=== PATIENT | male | born 1945 | race Caucasian/White ===

== ENCOUNTER 2017-12-26 16:38 | Inpatient (IN) | payer OTHER ==
[~2017-12-26] VITALS: Ht 195.6 cm; Wt 71.0 kg
[~2017-12-26 16:38] MED LIST: ACETAMINOPHEN325 M1 PO; ADVAIR 250-501 EACH PO; ALLOPURINOL100 MG PO; AMOXICILLIN500 MG PO; ASPIRIN81 MG PO; ATROPINE S0.1 MG/1 M PO; BACTRIM DS TAB1 EACH PO; BISACODYL5 MG PO; CENTRUM ULTRA1 EAC1 PO; CLOPIDOGREL75 MG PO; COMBIVENT INH14.7 GM INH; DIGOXIN125 MCG PO; DILTIAZEM 24HR180 MG PO; DITROPAN XL10 MG PO; DULCOLAX PO; ECOTRIN81 MG PO; FUROSEMIDE40 MG PO; GABAPENTIN300 MG PO; GEMFIBROZIL600 MG PO; GLIMEPIRIDE1 MG PO; GLIMEPIRIDE2 MG PO; HYDROCHLOROTH12.5 MG PO; IMODIUM A-1 MG/7.5 M PO; IMODIUM PO; IMODIUM2 MG PO; KLOR-CON20 MEQ PO; LEVAQUIN250 MG PO; LEVOTHYROXINE50 MCG PO; LIDOCAINE CREAM TOP; LISINOPRIL2.5 MG PO; LORAZEPAM0.5 MG PO; LYRICA200 MG PO; METFORMIN HCL850 MG PO; METOPROLOL SUCC25 MG PO; METOPROLOL SUCC50 MG PO; MORPHINE PO; MUPIROCIN22 GM TOP; NORCO 5-325 TA1 EACH PO; PACERONE200 MG PO; PRAVASTATIN SOD40 MG PO; PROAIR HFA INH8.5 GM INH; PROBIOTIC COMP1 EACH PO; PROCTOSOL-HC28.35 GM PR; QUESTRAN PACKET4 GM PO; REQUIP1 MG PO; ROPINIROLE HC0.25 MG PO; ROPINIROLE HCL1 MG PO; SAW PALMETTO450 MG PO; SILVER SULFADI400 GM; SILVER SULFADI400 GM TOP; SODIUM BICARBO650 MG PO; SYMBICORT 16010.2 GM INH; TAMSULOSIN HCL0.4 MG PO; TORSEMIDE10 MG PO; ULTRAM50 MG PO; VITAMIN D1000 UNI1 PO; VITAMIN D250000 UNIT PO; ZOFRAN ODT4 MG PO; [UNRECOGNIZED DRUG - OTHER]
--- OUTSIDE RECORDS SUMMARY | 2017-12-26 16:40 | XMS REPORT | Clinical Summary ---
Author Author [facility] Organization [facility] Address Unknown Phone Unavailable Care Team Providers Care Composition Professor Name Role Phone Asked, Pcp PCP Unavailable Allergies Active Allergy Reactions Severity Noted Date Comments Irbesartan GI Intolerance 09/10/2016 Iodine Low 05/31/2016 Patient have severe Nausea when he get Iodine Niacin Other (See Comments) 07/25/2016 Can not eat Current Medications Prescription Sig. Disp. Refills Start End Date Status Date gabapentin (NEURONTIN) Take 300 mg by mouth 2 0 04/20/20 Active 300 MG capsule (two) times a day. 16 gemfibrozil (LOPID) 600 Take 600 mg by mouth 0 04/20/20 Active MG tablet nightly. 16 glimepiride (AMARYL) 1 MG Take 1 mg by mouth every 0 04/20/20 Active tablet morning. 16 rOPINIRole (REQUIP) 1 MG Take 1 mg by mouth every 1 07/11/20 Active tablet morning. 16 pravastatin (PRAVACHOL) Take 40 mg by mouth 0 04/20/20 Active 40 MG tablet nightly. 16 levothyroxine (SYNTHROID, Take 50 mcg by mouth 0 04/20/20 Active LEVOTHROID) 50 MCG tablet every morning. 16 HYDROcodone-acetaminophen Take 1 tablet by mouth 0 07/19/20 Active (NORCO) 5-325 mg per every 6 (six) hours as 16 tablet needed for moderate pain. ON HOLD DUE TO ILEUS. USE METHOCARBAMOL. sodium bicarbonate 648 MG Take 650 mg by mouth 2 3 07/04/20 Active tablet (two) times a day. 16 aspirin (ECOTRIN) 81 MG Take 81 mg by mouth Active enteric coated tablet daily. budesonide (PULMICORT) Take 0.5 mg by Active 0.5 mg/2 mL nebulizer nebulization 2 (two) solution times a day as needed (combined with Formaterol as nebulizer.). hydroCHLOROthiazide Take 25 mg by mouth Active (HYDRODIURIL) 25 MG daily. tablet LORAZepam (ATIVAN) 0.5 MG Take 0.5 mg by mouth Active tablet every 6 (six) hours as needed for anxiety. multivitamin with Take 1 tablet by mouth Active minerals tablet daily. cholecalciferol, vitamin Take 1,000 Units by mouth Active D3, (VITAMIN D3) 1,000 daily. unit tablet digOXIN (LANOXIN) 125 mcg Take by mouth daily. Active tablet metoprolol tartrate Take 1 tablet (50 mg 1 tablet 0 06/27/20 (LOPRESSOR) 50 mg tablet total) by mouth once for 17 17 1 dose. hydrALAZINE (APRESOLINE) Take 1 tablet (50 mg 1 tablet 0 06/27/20 50 MG tablet total) by mouth once for 17 17 1 dose. Active Problems Problem Noted Date Unable to walk 11/13/2016 Acute renal failure 11/06/2016 Weakness 11/03/2016 DM type 2 (diabetes mellitus, type 2) 09/22/2016 Chronic atrial fibrillation 09/22/2016 [place]-vesical fistula 09/07/2016 Colon cancer 08/30/2016 Hypothyroidism Hypertension Hyperlipidemia Restless leg syndrome Coronary artery disease Encounters Date Type Specialty Care Team Description 09/23/2017 Patient Quality Abad Hardin RN Outreach 06/27/2017 Infusion Oncology Thomas Xie MD Chronic atrial fibrillation (Primary Dx); Malignant neoplasm of sigmoid colon; Unable to walk; Weakness after 12/25/2016 Social History Tobacco Use Types Packs/Day Years Used Date Former Smoker 1 56 Quit: 05/2016 Comments: pt is down to 5/day since beginning of month Alcohol Use Drinks/Week oz/Week Comments Yes 1 Cans of 0.6 OCCASIONAL beer Sex Assigned at Date Recorded Not on file Last Filed Vital Signs Vital Sign Reading Time Taken Blood Pressure 160/65 06/27/2017 8:01 PM CDT Pulse 66 06/27/2017 8:01 PM CDT Temperature 36.9 C (98.5 F) 06/27/2017 5:26 PM CDT Respiratory Rate 18 06/27/2017 5:26 PM CDT Oxygen Saturation 100% 06/27/2017 2:31 PM CDT Inhaled Oxygen - - Concentration Weight 76.7 kg (169 lb) 06/27/2017 9:05 AM CDT Height 195.6 cm (6' 5") 06/27/2017 9:05 AM CDT Body Mass Index 20.04 06/27/2017 9:05 AM CDT Plan of Treatment Health Maintenance Due Date Last Done Comments FOOT EXAM 1954 OPHTHALMOLOGY EXAM 1954 COLONOSCOPY 1994 ZOSTER VACCINE 2004 PNEUMOCOCCAL 2009 POLYSACCHARIDE VACCINE AGE 65 AND OVER PNEUMOCOCCAL-13 2009 INFLUENZA VACCINE 05/01/2017 Implants Implanted Type Area Applications Development Analyst Device Expiration Model / Identifier Date Serial / Lot Noxon Noxon Port Injctbl Smart Port Ct W/ Dtchd Implantabl N/A: N/A ANGIODYNAMICS 06/30/2019 [id number] Plyurthn Cath 8fr - [id number] Infusion INC / Implanted: 09/20/2016 (Quantity not Ports or / on file) Accessorie [id number] s Pacemaker Pacemaker Barrier Adhesion 5x6in Seprafilm - Surgical N/A: GENZYME 07/31/2018 4301 02 / [id number] Implants; Abdomen BIOSURGERY / Implanted: Qty: 1 on 08/30/2016 by [employer]; [id number] Pedro Wallis MD Extenders; Surgical Wires Barrier Adhesion 5x6in Seprafilm - Surgical N/A: GENZYME 02/28/2018 4301 02 / [id number] Implants; Abdomen BIOSURGERY / Implanted: Qty: 1 on 08/30/2016 by [employer]; [id number] Pedro Wallis MD Extenders; Surgical Wires Pacemaker Results * Transfuse RBC (06/27/2017 5:24 PM) Only the most recent of 2 results within the time period is included. * Prepare RBC, 2 Units (06/27/2017 10:08 AM) Component Value Ref Range Product name Red Blood Cells -1, Leukored Unit number [id number] Product code [id number] Dispense status Transfused Blood expiration date 20170705 Blood type code 0600 Blood type A NEGATIVE Product name Red Blood Cells -1, Leukored Unit number [id number] Product code [id number] Dispense status Transfused Blood expiration date 20170711 Blood type code 6200 Blood type A POSITIVE Specimen Performing Laboratory [facility] [place] DEPARTMENT OF PATHOLOGY AND GENOMIC MEDICINE [address] [place] [address] * Type and screen (06/27/2017 10:08 AM) Component Value Ref Range ABO grouping AB Rh type POS Antibody screen (gel) NEG Specimen Performing Laboratory Blood [facility] [place] DEPARTMENT OF PATHOLOGY AND GENOMIC MEDICINE [address] [place] [address] after 12/25/2016 Insurance Payer Benefit Subscriber ID Type Phone Address Plan / Group TEXANPLUS TEXAN[employer]US xxxxxxxxx [facility]
[2017-12-26] MEDS ORDERED: SODIUM CHLORIDE FLUSH 10 ML SYR INJ PRN (17:15)
--- OUTSIDE RECORDS SUMMARY | 2017-12-26 17:24 | XMS REPORT | Clinical Summary ---
Author Author [facility] Address Unknown Phone Unavailable Care Team Providers Care Devops Name Role Phone Asked, Pcp PCP Unavailable [...] type 2) 09/22/2016 Chronic atrial fibrillation 09/22/2016 [place]-vesical fistula 09/07/2016 Colon cancer 08/30/2016 Hypothyroidism Hypertension [...] INFLUENZA VACCINE 05/01/2017 Implants Implanted Type Area Continuous Yarn Dyeing Machine Operator Device Expiration Model / Identifier Date Serial / Lot [place] Port Injctbl Smart Port Ct W/ Dtchd Implantabl N/A: N/A ANGIODYNAMICS 06/30/2019 [id number] Plyurthn Cath 8fr - [id number] Infusion INC / Implanted: 09/20/2016 (Quantity not Ports or / on file) Accessorie [id number] s Pacemaker Pacemaker Barrier Adhesion 5x6in Seprafilm - Surgical N/A: GENZYME 07/31/2018 4301 02 / [id number] Implants; Abdomen BIOSURGERY / Implanted: Qty: 1 on 08/30/2016 by [employer]; [id number] Pedro Wallis MD Extenders; Surgical Wires Barrier Adhesion 5x6in Seprafilm - Surgical N/A: GENZYME 02/28/2018 4301 02 / [id number] Implants; Abdomen BIOSURGERY / Implanted: Qty: 1 on 08/30/2016 by [employer]; [id number] Pedro Wallis MD Extenders; Surgical Wires Pacemaker Results * Transfuse RBC (06/27/2017 5:24 PM) Only the most recent of 2 results within the time period is included. * Prepare RBC, 2 Units (06/27/2017 10:08 AM) Component Value Ref Range Product name Red Blood Cells -1, Leukored Unit number [id number] Product code [id number] Dispense status Transfused Blood expiration date 20170705 Blood type code 0600 Blood type A NEGATIVE Product name Red Blood Cells -1, Leukored Unit number [id number] Product code [id number] Dispense status Transfused Blood expiration date 20170711 Blood type code 6200 Blood type A POSITIVE Specimen Performing Laboratory [facility] DEPARTMENT OF PATHOLOGY AND GENOMIC MEDICINE [address] [place] [address] * Type and screen (06/27/2017 10:08 AM) Component Value Ref Range ABO grouping AB Rh type POS Antibody screen (gel) NEG Specimen Performing Laboratory Blood [facility] DEPARTMENT OF PATHOLOGY AND GENOMIC MEDICINE [address] [place] [address] after 12/25/2016 Insurance Payer Benefit Subscriber ID Type Phone Address Plan / Group [employer]US TEX[employer]US xxxxxxxxx [facility]
--- NOTE | 2017-12-26 17:50 | Diagnostic Imaging Report ---
PROCEDURE:X-RAY CHEST, ONE VIEW COMPARISON:Patients [facility], DX, CHEST XRAY LINE PLACEMENT, 04/16/2017, 8:41. INDICATIONS:BLOOD TRANSFUSION, FOOT INFECTION FINDINGS: The cardiomediastinal silhouette is stable with cardiac bypass changes and dual-lead pacemaker wires terminating in the right atrium and right ventricle. A MediPort catheter terminates in the SVC. Hilar morphology is stable suggestive of lymphadenopathy. The lungs are well-inflated. Airspace opacity in the left upper lobe has developed measuring approximately 3.5 cm. Fairly well-defined in the right midlung field has developed measuring 13 mm. Costophrenic angles are sharp. No pneumothorax. The osseous structures are intact. Median sternotomy wires are intact. Degenerative changes of the acromioclavicular joints are stable. CONCLUSION: 1. Stable postoperative changes. 2. Bilateral pulmonary opacities are suggestive of infiltrates or neoplasm. Recommend further evaluation with CT of the chest. Dictated by: Rajiv Rodriguez M.D. on 12/26/2017 at 17:51 Electronically approved by: Rajiv Rodriguez M.D. on 12/26/2017 at 17:51
[2017-12-26 17:51] LABS: BASOPHILS % 0.2 % (0.0-1.0); EOSINOPHILS # (AUTO) 0.1 (0.0-0.4); EOSINOPHILS % 2.3 % (0.0-6.0); LYMPHOCYTES # (AUTO) 0.4 (1.0-3.2); LYMPHOCYTES % 7.1 % (18.0-39.1); MEAN CORPUSCULAR HEMOGLOBIN 28.8 pg (28-32); MEAN CORPUSCULAR HGB CONC 31.8 g/dL (31-35); MEAN CORPUSCULAR VOLUME 90.6 fL (81-99); MONOCYTES # (AUTO) 0.5 (0.2-0.8); MONOCYTES % 7.5 % (4.4-11.3); NEUTROPHILS # (AUTO) 5.1 (2.1-6.9); NEUTROPHILS % 81.8 % (38.7-80.0); PLATELET COUNT 230 x10e3/uL (140-360); RED BLOOD COUNT 2.12 x10e6/uL (4.3-5.7); RED CELL DISTRIBUTION WIDTH 17.4 % (11.7-14.4)
[2017-12-26 17:54] LABS: HEMATOCRIT 19.2 % (38.2-49.6); HEMOGLOBIN 6.1 g/dL (14.0-18.0)
[2017-12-26] MEDS ORDERED: FUROSEMIDE INJ 10 MG/ML 2 ML VIAL IV SCH (18:00)
[2017-12-26 18:06] LABS: ALBUMIN/GLOBULIN RATIO 0.4 (0.8-2.0); ALKALINE PHOSPHATASE 117 IU/L (40-150); ANION GAP 13.7 mmol/L (8-16); BLOOD UREA NITROGEN 48 mg/dL (7-26); BUN/CREATININE RATIO 21 (6-25); CALCIUM 8.5 mg/dL (8.4-10.2); CARBON DIOXIDE 13 mmol/L (22-29); CHLORIDE 113 mmol/L (98-107); CREATININE, SERUM 2.25 mg/dL (0.72-1.25); EST GLOMERULAR FILTRATION RATE 29 ML/MIN (60-); GLUCOSE 194 mg/dL (74-118); POTASSIUM 4.7 mmol/L (3.5-5.1); SODIUM 135 mmol/L (136-145)
[2017-12-26 18:07] LABS: ALANINE AMINOTRANSFERASE < 6 IU/L (0-55)
[2017-12-26 18:11] LABS: INR 1.75; PROTHROMBIN TIME 19.2 seconds (11.9-14.5)
[2017-12-26 18:12] LABS: PARTIAL THROMBOPLASTIN TIME 48.5 seconds (23.8-35.5)
[2017-12-26] MEDS: PIPERACILLIN/TAZO 2.25 GM 50 ML IV SCH (19:14)
[2017-12-26] MEDS ORDERED: FUROSEMIDE INJ 10 MG/ML 2 ML VIAL IV PRN (19:19)
[2017-12-26] MEDS ORDERED: SODIUM CHLORIDE 0.9% 250ML 250 ML IV PRN (19:30)
[2017-12-26 20:30] VITALS: BP 172/75
[2017-12-26] MEDS ORDERED: BISACODYL 5 MG TAB EC PO PRN (20:30)
[2017-12-26] MEDS ORDERED: HYDROCODONE/APAP 5MG-325MG TAB PO PRN (20:30)
[2017-12-26] MEDS ORDERED: ACETAMINOPHEN 325 MG TAB PO PRN (20:30)
[2017-12-26] MEDS ORDERED: MORPHINE SULFATE 4 MG/ML SYR IV PRN (20:30)
[2017-12-26] MEDS ORDERED: PHYTONADIONE 1 MG/0.5 ML AMP IM NR (21:00)
[2017-12-26] MEDS: ROPINIROLE HCL 1 MG TAB PO SCH (22:09)
[2017-12-26] MEDS ORDERED: SODIUM CHLORIDE 0.9% 250ML 250 ML IV ONE (22:30)
[2017-12-26] MEDS ORDERED: SODIUM CHLORIDE 0.9% 250ML 250 ML ONE (22:46)
[2017-12-26] MEDS: MORPHINE SULFATE 2 MG/ML SYR IV PRN (23:30)
[2017-12-26 23:59] VITALS: BP 172/75
[2017-12-27] VITALS (7 sets, daily range): BP systolic 115–170; BP diastolic 56–88
[2017-12-27] MEDS: FUROSEMIDE INJ 10 MG/ML 2 ML VIAL IV PRN ×2 (01:23→04:23)
[2017-12-27] MEDS ORDERED: SODIUM CHLORIDE 0.9% 250ML 250 ML ONE ×2 (03:10→05:12)
[2017-12-27] MEDS: PIPERACILLIN/TAZO 2.25 GM 50 ML IV SCH ×3 (04:23→17:16)
[2017-12-27] MEDS: MORPHINE SULFATE 2 MG/ML SYR IV PRN (04:57)
[2017-12-27] MEDS: LEVOTHYROXINE SODIUM 75 MCG TAB PO SCH (05:26)
[2017-12-27] MEDS ORDERED: BUPIVACAINE 0.25% 30ML SDV INJ ONE (07:04)
[2017-12-27] MEDS ORDERED: BELLADONNA/OPIUM 60 MG SUPP PR ONE (07:04)
[2017-12-27] MEDS ORDERED: IOPAMIDOL 300MG/ML 50ML INFUS..BTL IV ONE (07:05)
[2017-12-27] MEDS ORDERED: MUPIROCIN 2% OINT 22 GM TUBE ONE (07:05)
[2017-12-27] MEDS: METOPROLOL SUCCINATE 25 MG TAB XL PO SCH (09:00)
[2017-12-27] MEDS ORDERED: LEVOTHYROXINE SODIUM 50 MCG TAB PO SCH (09:00)
[2017-12-27] MEDS: DILTIAZEM HCL 180 MG CAP CD PO SCH (09:00)
[2017-12-27] MEDS: DIGOXIN 0.125 MG TAB PO SCH (09:00)
[2017-12-27 10:41] LABS: BASOPHILS % 0.4 % (0.0-1.0); EOSINOPHILS # (AUTO) 0.1 (0.0-0.4); EOSINOPHILS % 0.7 % (0.0-6.0); HEMATOCRIT 27.4 % (38.2-49.6); HEMOGLOBIN 9.1 g/dL (14.0-18.0); LYMPHOCYTES # (AUTO) 0.3 (1.0-3.2); LYMPHOCYTES % 2.3 % (18.0-39.1); MEAN CORPUSCULAR HEMOGLOBIN 29.4 pg (28-32); MEAN CORPUSCULAR HGB CONC 33.2 g/dL (31-35); MEAN CORPUSCULAR VOLUME 88.7 fL (81-99); MONOCYTES # (AUTO) 0.4 (0.2-0.8); MONOCYTES % 3.5 % (4.4-11.3); NEUTROPHILS # (AUTO) 10.5 (2.1-6.9); NEUTROPHILS % 91.8 % (38.7-80.0); PLATELET COUNT 224 x10e3/uL (140-360); RED BLOOD COUNT 3.09 x10e6/uL (4.3-5.7); RED CELL DISTRIBUTION WIDTH 16.2 % (11.7-14.4)
[2017-12-27] MEDS: TAMSULOSIN HCL 0.4 MG CAP PO SCH (10:59)
[2017-12-27] MEDS: GABAPENTIN 300 MG CAP PO SCH ×2 (10:59→17:16)
[2017-12-27 11:02] LABS: INR 1.74; PROTHROMBIN TIME 19.1 seconds (11.9-14.5)
[2017-12-27 11:03] LABS: PARTIAL THROMBOPLASTIN TIME 41.9 seconds (23.8-35.5)
[2017-12-27 11:09] LABS: ALBUMIN 1.9 g/dL (3.5-5.0); ALBUMIN/GLOBULIN RATIO 0.5 (0.8-2.0); ALKALINE PHOSPHATASE 110 IU/L (40-150); ANION GAP 14.5 mmol/L (8-16); BLOOD UREA NITROGEN 47 mg/dL (7-26); BUN/CREATININE RATIO 22 (6-25); CALCIUM 8.3 mg/dL (8.4-10.2); CARBON DIOXIDE 11 mmol/L (22-29); CHLORIDE 115 mmol/L (98-107); CREATININE, SERUM 2.16 mg/dL (0.72-1.25); EST GLOMERULAR FILTRATION RATE 30 ML/MIN (60-); GLUCOSE 129 mg/dL (74-118); POTASSIUM 4.5 mmol/L (3.5-5.1); SODIUM 136 mmol/L (136-145)
[2017-12-27 11:10] LABS: ALANINE AMINOTRANSFERASE < 6 IU/L (0-55)
[2017-12-27] MEDS ORDERED: LIDOCAINE HCL 2% LOCAL INJ 5 ML SDV VIAL INJ ONE (18:38)
[2017-12-27] MEDS ORDERED: VASOPRESSIN INJ 20 UNIT/ML VIAL ONE (18:38)
[2017-12-27] MEDS ORDERED: ROCURONIUM BROMIDE 10 MG/ML 5ML VIAL ONE (18:38)
[2017-12-27] MEDS ORDERED: EPHEDRINE SULFATE INJ 50 MG/10 ML SYR ONE (18:38)
[2017-12-27] MEDS ORDERED: ONDANSETRON HCL INJ 2 MG/ML VIAL ONE (18:38)
[2017-12-27] MEDS ORDERED: PROPOFOL IV EMULSION 10 MG/ML 20 ML VIAL ONE (18:38)
[2017-12-27] MEDS ORDERED: SEVOFLURANE INHAL SOLN 250 ML PEN BTL ONE (18:38)
[2017-12-27] MEDS ORDERED: DEXAMETHASONE SOD PHOS INJ 4 MG/ML VIAL ONE (18:38)
[2017-12-27] MEDS ORDERED: FENTANYL CITRATE/PF 100MCG/2 ML INJ ONE (18:55)
[2017-12-27] MEDS: ROPINIROLE HCL 1 MG TAB PO SCH (23:23)
[2017-12-28] VITALS: BP 179/76
[2017-12-28] MEDS ORDERED: SODIUM CHLORIDE 0.9% 250ML 250 ML ONE (02:18)
[2017-12-28] MEDS: PIPERACILLIN/TAZO 2.25 GM 50 ML IV SCH ×2 (02:30→10:00)
[2017-12-28 04:00] VITALS: BP 135/63
[2017-12-28] MEDS: LEVOTHYROXINE SODIUM 75 MCG TAB PO SCH (06:10)
[2017-12-28 06:17] VITALS: BP 135/63
[2017-12-28 07:35] VITALS: BP 139/66
[2017-12-28 08:00] VITALS: BP 139/66
[2017-12-28] MEDS: DILTIAZEM HCL 180 MG CAP CD PO SCH (09:00)
[2017-12-28] MEDS: METOPROLOL SUCCINATE 25 MG TAB XL PO SCH (09:00)
[2017-12-28] MEDS: GABAPENTIN 300 MG CAP PO SCH (09:00)
[2017-12-28] MEDS: DIGOXIN 0.125 MG TAB PO SCH (09:00)
[2017-12-28] MEDS: TAMSULOSIN HCL 0.4 MG CAP PO SCH (09:00)
[2017-12-28] MEDS: MORPHINE SULFATE 2 MG/ML SYR IV PRN (10:05)
--- NOTE | 2017-12-28 11:21 | Discharge Summary ---
PRIMARY CARE PHYSICIAN: Dr. Kendall Quijano. FINAL DIAGNOSES 1. Status post cystoscopy with left ureteral stent placement secondary to left hydronephrosis. 2. Gross hematuria with gpejr-[id number] anemia, status post blood transfusion. SUMMARY: The patient is a chronically ill 72-year-old male on hospice with advanced colon cancer. The patient has an ostomy. He came in with hemoglobin and hematocrit of 6.1 and 19.2. The patient is status post 3 units blood transfusion. Subsequently, he underwent cystoscopy with left ureteral stent placement. The patient is doing much better now. He accidentally had his Healy catheter removed, but we will reinsert. He will have a leg bag in place. The patient remains active. He will continue with pain management and comfort palliative care with his colon cancer. The patient is stable for discharge today. Job#: [id number]
[2017-12-28 12:00] VITALS: BP 160/98
[2017-12-28] MEDS ORDERED: NEOMYCIN/POLYMYXIN/BACITRACIN 15 GM TUBE TOP SCH (15:00)
--- NOTE | 2018-01-31 01:37 | Operative Report ---
DATE OF PROCEDURE: December 27, 2017 PREOPERATIVE DIAGNOSES 1. Severe paraphimosis. 2. Left hydronephrosis due to stricture. 3. Foreign body (left indwelling ureteral stent). 4. Rectovesical fistula. 5. Urethral damage. POSTOPERATIVE DIAGNOSIS: OPERATIONS PERFORMED 1. Complicated circumcision (circumcision made complicated by the patient's severe paraphimosis and the anatomical distortion as well as other anatomical concerns). 2. Cystourethroscopy with bilateral ureteral catheterization and retrograde ureteropyelography. 3. Cystourethroscopy with complicated removal of left indwelling ureteral stent (separate procedure performed for the diagnosis of stent). 4. Cystourethroscopy with left stent placement (separate procedure performed to relieve the hydronephrosis due to stricture). 5. Interpretation of retrograde ureteropyelography. 6. Supervision of fluoroscopy. No radiologist present. 7. Complicated Healy placement (separate procedure performed for the traumatized urethra). 8. Interpretation of cystography. ANESTHESIA: General. COMPLICATIONS: None. CLINICAL SUMMARY: Kendall Mendoza is a 72-year-old man with paraphimosis. He has an indwelling ureteral stent. His urological situation is very complicated. He is brought for the above procedures. He is aware of the risks of bleeding, infection, injury to adjacent structures, need for additional procedures, and elected to proceed. OPERATIVE PROCEDURE IN DETAIL: Informed consent was verified. Kendall Mendoza was properly identified, taken to the operating room, placed on the cystoscopy table in supine position. Anesthesia was uneventfully begun. The patient's genitalia were then shaved, prepared, and draped in usual sterile fashion. Marcaine with epinephrine was utilized to infiltrate subcutaneously circumferentially at the base of the penis as well as in the region of the dorsal penile nerves. This was done for postoperative pain control and not required for actual performance of the surgery done under general anesthesia. A circumferential incision was then made just proximal to the paraphimotic band. This incision was carried through all layers, through the full thickness of the patient's skin. A secondary incision was then made approximately 5 mm away from zambrano of glans penis along the inner preputial skin. A sleeve circumcision was then performed. The foreskin was removed. Pinpoint electrocautery was utilized to achieve hemostasis. The patient's traumatic hypospadias made this more of a complicated circumcision with a complicated reconstruction. Pinpoint electrocautery was utilized to achieve hemostasis. We then approximated the patient's incision to the best of our ability to try to obtain a cosmetically acceptable result. This was accomplished. Once this was performed, the patient was then carefully and gently re-positioned in dorsal lithotomy position. He was re-draped. The 22.5-Taiwanese cystoscope sheath with the visual obturator in place was atraumatically inserted into the traumatically hypospadiac urethral meatus and into the patient's urethra. We then proceeded with following the patient's urethra and then we went into the patient's bladder where we identified an old stent emerging from the left ureteral orifice. The stent was then grasped, pulled out the urethral meatus where a guidewire was then placed through the stent and guided below the patient's kidney. The stent was then grasped, completely removed and discarded. A secondary ureteral catheter was used to cannulate over the guidewire and guided below the patient's kidney. Contrast was injected. The wire was replaced. With cystoscopic and fluoroscopic guidance, a left-sided indwelling ureteral stent was then placed. It was coiled in patient's kidney as well as patient's bladder. The retaining suture was cut short. I could not visualize the right u.o. There were tumors present in the bladder. Fistula was present as well. We then with difficultly placed a Healy catheter in place and inflated the balloon. Contrast was injected and performed cystography. Interpretation of retrograde ureteropyelography: Contrast was instilled in retrograde fashion on the left hand side. There was chronic hydronephrosis. The stent was in good position, coiled in patient's kidney as well as patient's bladder at the end of the case. Interpretation of cystography: The bladder wall was relatively smooth. The bladder was small. There was immediate extravasation of the bladder into the rectum, reaffirming the existence and establishing the radiographic proof of a significant intravesical fistula. The patient's penis was dressed with bacitracin ointment followed by Xeroform gauze, followed by loose-fitting Denisse. The patient was uneventfully reversed from anesthesia, taken to the recovery room in stable condition. There were no complications of the procedure. Patient tolerated the procedure well. Plans will be to follow the patient in the office in approximately 1 month at which point in time we might changes his Healy catheter. Job#: [id number] CF [id number]
== END 2017-12-28 14:20 | disposition hospice, home (50) | DRG 812 ==
LOC: ER 16:38 → ERHOLD 17:20 → EDBEDREQ 18:59 → MED/SURG3 19:23
PROVIDERS: ADMIT Internal Medicine; ATTEND Internal Medicine
PROC: 30233N1 Transfusion of Nonautologous Red Blood Cells into Peripheral Vein, Percutaneous Approach (ICD-10-PCS; principal; 2017-12-26)
PROC: 0VTTXZZ Resection of Prepuce, External Approach (ICD-10-PCS; 2017-12-27)
PROC: BT141ZZ Fluoroscopy of Kidneys, Ureters and Bladder using Low Osmolar Contrast (ICD-10-PCS; 2017-12-27)
PROC: 0TP980Z Removal of Drainage Device from Ureter, Via Natural or Artificial Opening Endoscopic (ICD-10-PCS; 2017-12-27)
PROC: 0T778DZ Dilation of Left Ureter with Intraluminal Device, Via Natural or Artificial Opening Endoscopic (ICD-10-PCS; 2017-12-27 07:00)
DX: D62 Acute posthemorrhagic anemia (principal); N13.30 Unspecified hydronephrosis; C18.9 Malignant neoplasm of colon, unspecified; N32.1 Vesicointestinal fistula; E11.22 Type 2 diabetes mellitus with diabetic chronic kidney disease; E11.40 Type 2 diabetes mellitus with diabetic neuropathy, unspecified; R31.0 Gross hematuria; D50.0 Iron deficiency anemia secondary to blood loss (chronic); Z51.5 Encounter for palliative care; N47.2 Paraphimosis; I12.9 Hypertensive chronic kidney disease with stage 1 through stage 4 chronic kidney disease, or unspecified chronic kidney disease; N18.9 Chronic kidney disease, unspecified; E78.5 Hyperlipidemia, unspecified; F41.9 Anxiety disorder, unspecified; I25.10 Atherosclerotic heart disease of native coronary artery without angina pectoris; G25.81 Restless legs syndrome; Z95.1 Presence of aortocoronary bypass graft; Z95.5 Presence of coronary angioplasty implant and graft; Z95.810 Presence of automatic (implantable) cardiac defibrillator; F17.200 Nicotine dependence, unspecified, uncomplicated; Z79.82 Long term (current) use of aspirin; Z79.891 Long term (current) use of opiate analgesic; Z93.2 Ileostomy status; Q54.9 Hypospadias, unspecified
CPT/HCPCS: 36415; 71045; 74420; 80048; 80053; 84443; 85025; 85610; 85730; 86850; 86900; 86920; 88304; 88305; 93005; 99283; C2617; J1100; J1940; J2001; J2270; J2405; J2543; J7050; P9016